=== PATIENT | male | born 1950 | race Caucasian/White ===

== ENCOUNTER → 2016-07-21 | Outpatient (CLI) | payer MEDICARE, OTHER ==
[~2016-07-21] MED LIST: ASPI81TA55 PO; ATN50T PO; ATOR20TA PO; DIPH25CA79 PO; EZET1TAB6 PO; GLUC100016 PO; MULT-351 PO; OMG1KC PO; OXYM15MI4 NS; TBR.3OP51 OD
[2016-07-21 14:35] VITALS: BP 141/87
--- NOTE | 2016-07-21 14:35 | Urgent Care T Sheet Gen (E) ---
Intake General Temperature (Fahrenheit): 97.9 Pulse: 51 Blood Pressure Systolic: 141 Blood Pressure Diastolic: 87 Respirations: 18 SPO2: 97 Description of Symptoms patient presents with a red, irritated and swollen R eye since Wednesday. States it feels like there is something in there. No light sensitivity. Redness and swelling has gotten worse with time. Eye was matted shut the last 2 morning. No nasal congestion or cough. No meds. History of Present Illness Allergies: Coded Allergies: No Known Drug Allergies (Unverified , 03/22/15) Home Meds Active Scripts Tobramycin Sulf (Tobrex 0.3% Ophthalmic Solution)5 Ml Soln2 Drops OD QID #1 BTL 2 drops in R eye QID x 5 days Prov:JAKE BAH 07/21/16 Reported Medications Oxymetazoline HCl (Afrin)15 Ml Mist15 Ml NS NEEDED 03/25/15 Diphenhydramine HCl (Benadryl)25 Mg [id number] Mg PO DAILY 03/25/15 Glucosamine Sulfate 2KCL (Glucosamine)1,000 Mg Tablet1,000 Mg PO DAILY 03/25/15 Multivitamin (Daily Vitamin Formula)1 Each Tablet1 Each PO DAILY 03/22/15 Ezetimibe/Simvastatin (Vytorin 10-20 mg Tablet)1 Each Tablet1 Each PO DAILY 03/22/15 [place] 3 Polyunsat Fatty Acids (Fish Oil)1,000 Mg Cap1,000 Mg PO DAILY 03/22/15 Atenolol 50 Mg [id number] Mg PO DAILY 03/22/15 Atorvastatin (Lipitor)20 Mg [id number] Mg PO DAILY 03/22/15 Aspirin (Aspir-Low)81 Mg Tablet.dr81 Mg PO DAILY 03/22/15 Respiratory Constitutional Symptoms: No syptoms reported EENTM: Eye painNo Blurred vision, Eye tearing Respiratory: No symptoms reported Cardiovascular: No symptoms reported All Other Systems Reviewed Remaining Systems: All other systems reviewed with negative findings Past [id number]-[id number] Hx Surgeries/Hospitalizations Hospitalization/Surgery Hx: cabg, gallbladder, ear, triple bipass, T/A, colonoscopy, lap mimi Respiratory Respiratory History: None Cardiovascular Cardiovascular History: Hypertension, PR (Heart Attack), Coronary Heart Disease Comment: PR was 10 years ago, Triple bypass Neuro/Muscular Neuro/Muscular History: Visual impairment Genitouinary Genitourinary History: None Gastrointestinal GI/Endocrine History: None Diabetes Diabetes: No Integumentary Integumentary History: None Cancer History of Cancer?: No Physical Exam Physical Exam General Appearance: WD/WN No apparent distress Eyes, Ears, Nose, Throat Ex: PERRL/EOMI (the R upper eyelid is red and swollen. no warmth to the area. no drainage from the eye. the lid is more swollen along the nasal aspect and there is a slight protuberance along the inner lid. 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 Warm compress to the eye. Rest. Fluids Return if no better. May need oral antibiotics if drops area effective Patient understands DC instructions. All questions were answered. Scripts Tobramycin Sulf (Tobrex 0.3% Ophthalmic Solution)5 Ml Soln2 Drops OD QID #1 BTL 2 drops in R eye QID x 5 days Prov:JAKE BAH 07/21/16 End of report . JAKE BAH July 21, 2016 10:53
== END ==
LOC: MHUC 10:38
PROVIDERS: ATTEND Physician Assistant
DX: H44.001 Unspecified purulent endophthalmitis, right eye (principal)
CPT/HCPCS: 99213